=== PATIENT | female | born 1940 | race Caucasian/White ===

== ENCOUNTER → 2018-09-09 11:30 | Outpatient (CLI) | payer MEDICARE, OTHER, SELFPAY ==
[2016-12-24 09:52] VITALS: BMI 34.9
[2018-09-09 14:00] LABS: Amphetamine Urine VISTA NEGATIVE (<1000 ng/mL); Barbiturate Urine VISTA NEGATIVE (< 200 ng/mL); Benzodiazepine Urine VISTA NEGATIVE (< 200 ng/mL); Cocaine Urine VISTA NEGATIVE (< 300 ng/mL); Ecstacy Urine VISTA NEGATIVE (< 500 ng/mL); Methadone Urine VISTA NEGATIVE (< 300 ng/mL); PCP Urine VISTA NEGATIVE (< 25 ng/mL); THC Urine VISTA NEGATIVE (< 50 ng/mL); Vista UDS pH Range 5
== END ==
PROVIDERS: Family Provider Internal Medicine; PCP Internal Medicine; Referring Provider Anesthesiology Pain Medicine; Visit Provider Anesthesiology Pain Medicine
DX: F11.20 Opioid dependence, uncomplicated (principal)
CPT/HCPCS: 80307

== ENCOUNTER → 2019-08-11 10:54 | Outpatient (CLI) | payer MEDICARE, OTHER, SELFPAY ==
[2019-04-29 10:03] VITALS: BMI 41.8
[2019-08-11 11:59] LABS: Amphetamine Urine VISTA NEGATIVE (<1000 ng/mL); Barbiturate Urine VISTA NEGATIVE (< 200 ng/mL); Benzodiazepine Urine VISTA NEGATIVE (< 200 ng/mL); Cocaine Urine VISTA NEGATIVE (< 300 ng/mL); Ecstacy Urine VISTA NEGATIVE (< 500 ng/mL); Methadone Urine VISTA NEGATIVE (< 300 ng/mL); PCP Urine VISTA NEGATIVE (< 25 ng/mL); THC Urine VISTA NEGATIVE (< 50 ng/mL); Vista UDS pH Range 6
== END ==
PROVIDERS: PCP Internal Medicine; Referring Provider Anesthesiology Pain Medicine; Visit Provider Anesthesiology Pain Medicine
DX: F11.20 Opioid dependence, uncomplicated (principal)
CPT/HCPCS: 80307

== ENCOUNTER → 2020-08-17 12:22 | Outpatient (CLI) | payer MEDICARE, OTHER, SELFPAY ==
[2019-04-29 10:03] VITALS: BMI 41.8
--- NOTE | 2020-08-17 12:29 | MRI_ITS ---
STUDY: MRI LEFT ANKLE WITHOUT CONTRAST REASON FOR EXAM: Female, 80 years old. OSTEOARTHRITIS LEFT ANKLE TECHNIQUE: Standardized fat and water weighted pulse sequences were obtained in all 3 orthogonal planes. COMPARISON: Contralateral ankle MRI from the same day. FINDINGS: Moderate tibiotalar joint arthrosis with multiregional bone contusion and small osteochondral lesions. Mild subtalar joint arthrosis. Moderate/severe calcaneocuboid joint arthrosis. Advanced mid foot joint arthrosis with cyst/erosions at the talonavicular, navicular cuneiform and tarsometatarsal joints. No acute fracture line. No acute dislocation. No evidence of acute bone destruction. Os trigonum. Mild/moderate Achilles tendinosis. Large plantar spur. Chronic plantar fascial thickening. Muscle atrophy. Moderate volume midfoot/hindfoot joint effusions predominating at the tibiotalar joint. Extensive soft tissue swelling. No solid, cystic or lipomatous soft tissue lesions. Diffuse soft tissue swelling. Trace extensor digitorum tenosynovitis. Remainder of the extensor tendons unremarkable. Minimal peroneus longus/brevis tenosynovitis with paranasal and split tear (axial image 25 series 4). Mild posterior tibialis and flexor tenosynovitis with fluid at the master knot of [place]. Chronic Lisfranc ligament sprain. Chronic anterior and posterior talofibular ligament sprains. Syndesmotic ligaments intact. Acute on chronic deltoid ligament sprain. Normal spring ligament. Sinus Tarsi/subtalar edema. 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
--- NOTE | 2020-08-17 12:29 | MRI_ITS ---
STUDY: MRI RIGHT ANKLE WITHOUT CONTRAST REASON FOR EXAM: Female, 80 years old. ACHILLES TENDINITIS RIGHT ANKLE TECHNIQUE: Standardized fat and water weighted pulse sequences were obtained in all 3 orthogonal planes. COMPARISON: None. FINDINGS: Moderate tibiotalar joint arthrosis with osteochondral lesions measuring up to 1.4 cm (sagittal image 9). Mild subtalar joint arthrosis. Moderate calcaneocuboid joint arthrosis. Moderate/severe talonavicular joint arthrosis. Severe midfoot joint arthrosis at the navicular cuneiform and tarsometatarsal joints. Large os trigonum. Multiregional reactive bone marrow edema without fracture line, dislocation or acute bone destruction. Moderate/severe Achilles tendinosis with calcification (sagittal image 13 series 8). Plantar fascial thickening. Plantar spur. Normal extensor tendons. Mild posterior tibialis tenosynovitis. Remaining flexor tendons unremarkable. Mild peroneus longus/brevis tenosynovitis without tear. Chronic Lisfranc ligament sprain without tear (long axis image 11 series 10). Anterior and posterior syndesmotic ligament intact. Chronic thickening of the anterior and posterior talofibular ligaments. Acute on chronic deltoid ligament sprain. Normal spring ligament. Sinus Tarsi/subtalar ligamentous edema. Moderate diffuse soft tissue swelling. Small volume ankle joint effusions. No solid, cystic or lipomatous lesions. Varicose veins. MRI/Lower Ext Joint Only (Routine) IMPRESSION: Charcot''s arthropathy with advanced mid foot/hindfoot degenerative change Moderate/severe Achilles tendinosis with calcification Chronic plantar fascial thickening with plantar spur Mild PTT and peroneus longus/brevis tenosynovitis Multiregional acute/chronic ankle sprains without tear Moderate soft tissue swelling with small volume joint effusions Electronically Signed: Toño Mac DO at 8:15 EST Tel , Service support ,
== END ==
PROVIDERS: PCP Internal Medicine; Referring Provider Podiatrist; Visit Provider Podiatrist
DX: M19.072 Primary osteoarthritis, left ankle and foot (principal); M76.61 Achilles tendinitis, right leg
CPT/HCPCS: 73721

== ENCOUNTER 2021-07-10 10:59 | Outpatient (CLI) | payer MEDICARE, OTHER, SELFPAY ==
[2019-04-29 10:03] VITALS: BMI 41.8
[2021-07-10 13:31] LABS: Amphetamine Urine VISTA NEGATIVE (<1000 ng/mL); Barbiturate Urine VISTA NEGATIVE (< 200 ng/mL); Benzodiazepine Urine VISTA NEGATIVE (< 200 ng/mL); Cocaine Urine VISTA NEGATIVE (< 300 ng/mL); Ecstacy Urine VISTA NEGATIVE (< 500 ng/mL); Methadone Urine VISTA NEGATIVE (< 300 ng/mL); PCP Urine VISTA NEGATIVE (< 25 ng/mL); THC Urine VISTA NEGATIVE (< 50 ng/mL); Vista UDS pH Range 6
== END 2021-07-10 23:59 | disposition short-term general hospital (02) ==
LOC: LAB 11:02
PROVIDERS: PCP Internal Medicine; Referring Provider Anesthesiology Pain Medicine; Visit Provider Anesthesiology Pain Medicine
DX: F11.20 Opioid dependence, uncomplicated (principal)
CPT/HCPCS: 80307

== ENCOUNTER 2022-04-22 06:45 | Day surgery (SDC) | payer MEDICARE, OTHER, SELFPAY ==
[2019-04-29 10:03] VITALS: BMI 41.8
[2022-04-18 08:36] VITALS: BMI 38.0
[2022-04-19 07:00] LABS: INR Fingerstick 2.3; Prothrombin Time Fingerstick 27.2 SEC (11.7-14.9)
[2022-04-22 06:56] LABS: INR Fingerstick 1.5; Prothrombin Time Fingerstick 17.9 SEC (11.7-14.9)
--- NOTE | 2022-04-22 07:51 | HP.PCM_ITS ---
History and Physical 82-year-old lady with a history of atrial fibrillation hypertension history of breast carcinoma who recently established with us. She has a history of atrial fibrillation and underwent an EKG last year which demonstrated sinus rhythm with a rate of 68 bpm and occasional premature ventricular complexes.? She has had an episode of dizziness and was evaluated by her primary physician.? Her last echocardiogram was in 2019 which demonstrated an ejection fraction of 50%.? It was decided that a chest echocardiogram should be repeated.? She had also previously had a pharmacologic myocardial perfusion stress test in March 2021 demonstrating no evidence of ischemia.? She was undergoing a preoperative cardiac evaluation by her primary care doctor. Primary care doctor did obtain a stress test. Stress test in April 2022 was found to be abnormal. It was a limited cardiac scan due to bowel artifact. The limitations of the scans demon strated moderate to severe basal inferior wall reversibility defect which could be related to stress-induced ischemia. Because of this she is undergoing a diagnostic heart catheterization. Medications simvastatin 20 mg tablet 20 mg PO QHS 10/27/13 [History Confirmed 02/22/22] carvedilol 6.25 mg tablet (Coreg) 6.25 mg PO BID 12/13/16 [History Confirmed 02/22/22] pregabalin 75 mg capsule 75 mg PO BID 12/13/16 [History Confirmed 02/22/22] calcium citrate 250 mg PO BID 02/20/22 [History Confirmed 02/22/22] ferrous gluconate 324 mg (37.5 mg iron) tablet 324 mg PO DAILY 02/20/22 [History Confirmed 02/22/22] furosemide 20 mg tablet 20 mg PO DAILY 02/20/22 [History Confirmed 02/22/22] losartan 25 mg tablet 25 mg PO DAILY 02/20/22 [History Confirmed 02/22/22] mirabegron 50 mg tablet,extended release 24 hr (Myrbetriq) 50 mg PO DAILY 02/20/22 [History Confirmed 02/22/22] multivitamin 1 tab PO DAILY 02/20/22 [History Confirmed 02/22/22] ropinirole 0.5 mg tablet 0.5 mg PO DAILY 02/20/22 [History Confirmed 02/22/22] warfarin 5 mg tablet (Jantoven) 5 mg PO DAILY 02/20/22 [History Confirmed 02/22/22] hydrocodone 7.5 mg-acetaminophen 325 mg tablet 1 tab PO BID 02/22/22 [History Confirmed 02/22/22] oxybutynin chloride 10 mg tablet,extended release 24 hr (Ditropan XL) 10 mg PO DAILY 02/22/22 [History Confirmed 02/22/22] polyethylene glycol 3350 17 gram oral powder packet 17 g PO DAILY PRN constipation 02/22/22 [History Confirmed 02/22/22] Ejection fraction %: 40 to 44 PFSH Medical History?(Updated 02/22/22 @ 10:08 by Chely Nelson) Abnormal EKG Afib Anemia Arthritis Breast cancer Carpal tunnel syndrome, bilateral Chronic low back pain Class 2 severe obesity due to excess calories with serious comorbidity and body mass index (BMI) of 38.0 to 38.9 in adult DVT (deep venous thrombosis) Dysuria Essential (primary) hypertension History of pulmonary embolism Hyperlipemia Insomnia Lymphedema JUANY (obstructive sleep apnea) Osteoarthritis Stage 3b chronic kidney disease Surgical History?(Updated 02/22/22 @ 10:09 by Chely Nelson) History of bilateral knee replacement History of carpal tunnel surgery History of cataract surgery History of left shoulder replacement (~01/24/17) History of lumpectomy of right breast History of partial mastectomy of right breast Hx of adenoidectomy Hx of appendectomy Hx of tonsillectomy Family History?(Updated 02/20/22 @ 14:09 by Chely Nelson) Father Prostate cancer Hyperlipidemia Heart disease HypertensionBrother Diabetes CVA (cerebral vascular accident) Heart diseaseSister Cervical cancerMother Hyperlipidemia Heart disease Hypertension CancerAunt Heart disease Hypertension Social History?(Updated 02/22/22 @ 10:10 by Chely Nelson) Smoking Status:? Never smoker alcohol intake:? never substance use type:? does not use caffeine:? Yes Type: tea Number of servings: 1 ROS Const Const: Negative for fatigue, weakness, headache(s), frequent falls, difficulty sleeping or excessive sweating Eyes Eyes: Negative for loss of peripheral vision, transient loss of vision, blurry vision, double vision or tunnel vision ENT ENT: Positive for balance problems (uses canes for walking); Negative for headache(s), dizziness or Nosebleed/epistaxis Cardio Chest Pain: No Palpitations: No Edema: Bilateral Muscle aches with walking: None Resp Respiratory: Positive for SOB with activity (walking long distance); Negative for SOB at rest, SOB orthopnea\SOB lying down, Cough or paroxysmal nocturnal dyspnea GI GI: Negative nausea, vomiting, heartburn or black,tarry stools : Negative for hematuria Musc Musc: Positive for joint pain and balance problems (uses canes for walking); Negative for muscle aches/ myalgia or muscle weakness Skin Skin: Negative non-healing lesions, rash or unusual bruising Neuro Neuro: Positive for lightheadedness and near syncope; Negative for dizziness, syncope, frequent falls, headache(s), weakness, blurry vision, double vision or lack of coordination Hal Hematologic/Lymphatic: Negative for easy bleeding or easy bruising Endo Endo: Negative for fatigue, excessive sweating or increased thirst/drinking Psych Psych: Negative for anxiety or depression Allergy Allergy/Immunology: Negative for hives and Negative for rash Cardiology Exam Const Appearance: cooperative, healthy appearing, no acute distress, well developed and well groomed Nutritional Appearance: average body habitus and well nourished Orientation: alert, awake and oriented x3 Head Head: normal to inspection, normocephalic and atraumatic Ears: hearing grossly normal bilaterally and external ears normal Nose: external nose normal, nares normal, nasal mucous membranes and turbinates normal, septum normal and no nasal discharge Face and Sinus: face symmetric Mouth: oral mucosae normal, tongue normal, oropharynx normal and moist mucous membranes Teeth and gingiva: dentition normal Throat: posterior oropharynx normal, tonsils normal and uvula midline Eyes General: appearance normal, both eyes and all related structures Eyelids: eyelids normal Conjunctivae: conjunctivae normal Pupils: PERRL, normal by confrontation and accommodation normal EOM: EOM intact bilaterally Neck Neck: normal visual inspection, trachea midline and no JVD JVD: +5 Carotids: normal carotid upstroke and bounding pulses Chest Chest inspection: normal inspection of the chest, symmetric chest movement and normal respiratory effort Auscultation: Bilateral: Clear to Auscultation Cardio Palpation: normal PMI Rate: regular rate Rhythm: regular rhythm Heart sounds: S1 normal, S2 normal and normal, physiologic split S2; Negative rub, gallop or murmur GI GI: normal to inspection, soft, no hepatosplenomegaly and bowel sounds present Neuro General: patient alert, patient awake, patient oriented x3, gait normal, moves all extremities and no focal sensory deficit Skin Skin: no rashes or lesions noted Extremities Pulses: Normal: Right Femoral Pulse, Left Femoral Pulse, Right Dorsalis Pedis Pulse, Left Dorsalis Pedis Pulse, Right Posterior Tibial Pulse, Left Posterior Tibial Pulse, Right Radial Pulse and Left Radial Pulse Lower Extremity Edema: None: Bilateral Musculoskel Musculoskeletal: No joint tenderness Psych Psychological: normal affect Assessment & Plan Assessment/Plan (1) Encounter for pre-operative cardiovascular clearance: (2) Abnormal cardiovascular stress test: (3) Essential (primary) hypertension: (4) Paroxysmal atrial fibrillation: PLAN: Plan Patient is undergoing a diagnostic heart catheterization today. Follow-up recommendations will based upon results.
--- NOTE | 2022-04-22 09:47 | CL.D_ITS ---
Patient Name: NITA PONCE Study Date: 04/22/2022 Performing: Carlos Vaughan MD Ht: 67 inches 170.18 cm : 1940 Wt: 242.99 lbs 110.22 kg Age: 82 Gender: female BSA: 2.2 PROCEDURE(S) PERFORMED DC01-([id number])LHC/COR/LV CLINICAL PROFILE AND INDICATIONS Indications: Suspected CAD Heart Failure: None Stress/Imaging Date: 04/09/22Stress Test with SPECT MPI: Indeterminant CAD Presentations: No Sxs, no angina. CONCLUSIONS No significant obstructive coronary disease RECOMMENDATIONS Medical therapy DESCRIPTION OF PROCEDURE The patient arrived to the procedure lab. The risks and benefits of the procedure as well as a full description of our services here and current unavailability of surgical backup were fully explained to the patient and/or their significant other prior to the catheterization. The Timeout was completed, verifying the correct patient and procedure. The patient's procedural site was prepped and draped in the usual fashion. Local anesthetic was given subcutaneously to right radial region with Lidocaine 2%. Using a modified Seldinger technique, arterial access was obtained via the right radial artery, a 6Fr sheath was inserted. Right Coronary Artery selective angiography was then performed in multiple views using a 5 Fr. 4.0 [place] catheter. Left Coronary Artery selective angiography was performed in multiple views using a 5 Fr. 4.0 [place] catheter. Left Ventriculography was performed in VIRGEN projection using a 5 Fr. Pig[place] catheter. LV to AO pullback pressures were then recorded.The arterial sheath was pulled and a TR Band was applied for hemostasis CORONARY ANGIOGRAPHY DOMINANCE: Right Dominant LEFT HEART ASSESSMENT Left Ventricular Ejection Fraction: by LV Gram 60 % Normal LV wall motion Normal Left Ventricular systolic function LEFT MAIN: No significant disease noted LEFT ANTERIOR DESCENDING ARTERY: Mild luminal irregularities CIRCUMFLEX ARTERY: No significant disease noted RIGHT CORONARY ARTERY: No significant disease noted COMPLICATIONS No Complications PROCEDURE MEDICATIONS Fentanyl 50 mcg IV Versed 1 mg IV Versed 1 mg IV Oxygen: 2 L/min via nasal cannula SUMMARY OF HEMODYNAMIC DATA Time AIR REST ECG 07:20:44 AO 119/67 (90) SA 09:29:53 LV 140/14, 23 09:35:39 LV 146/16, 27 09:35:46 LV 145/14, 25 09:36:30 LVp 147/13, 09:36:36 AOp 154/73 (109) 09:36:41 Signed By Carlos Vaughan MD On 04/22/2022 09:47:23 Carlos Vaughan MD
== END 2022-04-22 11:25 | disposition home or self-care (01) ==
PROVIDERS: PCP Internal Medicine; Referring Provider Internal Medicine Cardiovascular Disease; Visit Provider Internal Medicine Cardiovascular Disease
DX: I25.10 Atherosclerotic heart disease of native coronary artery without angina pectoris (principal); I48.0 Paroxysmal atrial fibrillation; N18.32 Chronic kidney disease, stage 3b; I12.9 Hypertensive chronic kidney disease with stage 1 through stage 4 chronic kidney disease, or unspecified chronic kidney disease; E78.5 Hyperlipidemia, unspecified; G47.33 Obstructive sleep apnea (adult) (pediatric); D64.9 Anemia, unspecified; Z86.718 Personal history of other venous thrombosis and embolism; Z79.82 Long term (current) use of aspirin; Z79.899 Other long term (current) drug therapy; Z79.01 Long term (current) use of anticoagulants
CPT/HCPCS: 36416; 85610; 93458; 99152; 99153; J7040; C1769; C1894; Q9967

== ENCOUNTER → 2022-10-30 | Outpatient (CLI) | payer MEDICARE, OTHER, SELFPAY ==
[2019-04-29 10:03] VITALS: BMI 41.8
[2022-10-30 12:52] LABS: Anion Gap 5 (5-15); BUN 21 mg/dL (7-18); BUN/Creat Ratio 21.9 RATIO (10-20); Calcium,Total 9.4 mg/dL (8.5-10.1); Chloride 105 mmol/L (98-107); Creatinine, Serum 0.96 mg/dL (0.55-1.02); EST Glomerular Filtration Rate 60 mL/min (>60); Est Glom Filt Rate - Afr Amer 72 mL/min (>60); Glucose 114 mg/dL (74-106); Potassium 3.7 mmol/L (3.5-5.1); Sodium Level 141 mmol/L (136-145)
== END | disposition home or self-care (01) ==
LOC: LAB 11:31
PROVIDERS: PCP Internal Medicine; Referring Provider Internal Medicine Cardiovascular Disease; Visit Provider Internal Medicine Cardiovascular Disease
DX: R60.9 Edema, unspecified (principal); N18.32 Chronic kidney disease, stage 3b
CPT/HCPCS: 36415; 80048

== ENCOUNTER 2023-04-02 13:15 | Outpatient (RCR) | payer MEDICARE, OTHER, SELFPAY ==
[2019-04-29 10:03] VITALS: BMI 41.8
[2023-03-19 13:00] VITALS: BP 139/77; PULSE 66; RESP 16; TEMP 36.3; BMI 34.6
--- NOTE | 2023-03-19 16:51 | PCM.WC.HP ---
History of Present Illness Date of Service: 03/19/23 Chief Complaint: Left anterior leg wound History of Wound: Patient is a 83-year-old known to the wound care center at [facility] for treatment and evaluation of her chronic left anterior leg wound. Patient has been getting treatment by her primary care physician with regular debridements and antibiotic treatment. Patient did have a culture by her primary care that grew out Pseudomonas aeruginosa she was treating with topical antibiotics and again oral antibiotics, 2 rounds with failure to heal. She presents today to the wound care center for treatment. She denies any trauma. Denies constitutional symptoms. No other pedal complaints at this time. Progress of Wound: Chronic ulceration left anterior leg. [facility] Medical History Anemia Arthritis Breast cancer Carpal tunnel syndrome, bilateral Chronic low back pain Class 2 severe obesity due to excess calories with serious comorbidity and body mass index (BMI) of 38.0 to 38.9 in adult DVT (deep venous thrombosis) Dysuria Essential (primary) hypertension History of pulmonary embolism Hyperlipemia Insomnia Lymphedema Non-ischemic cardiomyopathy JUANY (obstructive sleep apnea) Osteoarthritis Paroxysmal atrial fibrillation Stage 3b chronic kidney disease Home Medications simvastatin 20 mg tablet 20 mg PO QHS 10/27/13 [History Last Taken Unknown] pregabalin 75 mg capsule 75 mg PO BID 12/13/16 [History Last Taken Unknown] mirabegron 50 mg tablet,extended release 24 hr (Myrbetriq) 50 mg PO DAILY 02/20/22 [History Last Taken Unknown] multivitamin 1 tab PO DAILY 02/20/22 [History Last Taken Unknown] ropinirole 0.5 mg tablet 0.5 mg PO DAILY 02/20/22 [History Last Taken Unknown] warfarin 5 mg tablet (Jantoven) 5 mg PO DAILY 02/20/22 [History Last Taken Unknown] hydrocodone 7.5 mg-acetaminophen 325 mg tablet 1 tab PO BID 02/22/22 [History Last Taken Unknown] oxybutynin chloride 10 mg tablet,extended release 24 hr (Ditropan XL) 10 mg PO DAILY 02/22/22 [History Last Taken Unknown] carvedilol 12.5 mg tablet 12.5 mg PO BID #180 tabs 02/28/22 [Rx Last Taken 04/22/22] calcium citrate 315 mg-vitamin D3 5 mcg (200 unit) tablet (Calcium Citrate + D) 1 tab PO BID 03/19/23 [History Last Taken Unknown] cranberry fruit concentrate 250 mg chewable tablet (Azo Cranberry) 500 mg PO DAILY 03/19/23 [History Last Taken Unknown] melatonin 10 mg capsule 10 mg PO QHS 03/19/23 [History Last Taken Unknown] vit C 250 mg-vit E 200 unit-zinc ox 12.5 as-ehnmtd-wxlsde-zeax capsule (ICaps AREDS2) cap PO DAILY 03/19/23 [History Last Taken Unknown] Allergy/AdvReac Type Severity Reaction Status Date / Time adhesive tape AdvReac Intermediate Other Verified 03/19/23 13:17 lisinopril AdvReac Mild cough Verified 03/19/23 13:17 Family History Father Prostate cancer Hyperlipidemia Heart disease Hypertension Brother Diabetes CVA (cerebral vascular accident) Heart disease Sister Cervical cancer Mother Hyperlipidemia Heart disease Hypertension Cancer Aunt Heart disease Hypertension Surgical History History of bilateral knee replacement History of carpal tunnel surgery History of cataract surgery History of left heart catheterization (04/22/22) History of left shoulder replacement (01/24/17) History of lumpectomy of right breast History of partial mastectomy of right breast Hx of adenoidectomy Hx of appendectomy Hx of tonsillectomy Social History Smoking Status: Never smoker alcohol intake: never substance use type: does not use caffeine: Yes Type: tea Number of servings: 1 Vital Signs Vital Signs Vital Signs: 03/19/23 13:00 Temperature 97.4 F L Temperature Source Temporal Pulse Rate 66 Respiratory Rate 16 Blood Pressure 139/77 H Blood Pressure Mean 97 Blood Pressure Source Monitor Blood Pressure Position Sitting Blood Pressure Location Left Arm Oxygen Delivery Method Room Air Weight Weight: 100.244 kg Body Mass Index (BMI) 34.6 Physical Exam Narrative Vascular: DP and PT pulse are faintly palpable secondary to edema. CFT is brisk. Skin temperature great is warm to warm from proximal ankle to distal digit. Neurological: Light touch and epicritic station is intact. Dermatological: Full-thickness ulceration to the left anterior leg measuring 2.0 x 1.5 x 0.2 cm. Wound base is granular nature. No sign of infection. No evidence of drainage. No probe to bone. No erythema or proximal streaking. Excisional debridement down to and including subcutaneous tissue with a number 5 mm dermal curette to left anterior leg full-thickness ulceration. Predebridement measurement is 1.8 x 1.4 x 0.1 cm. Postdebridement measurements are 2.0 x 1.5 x 0.2 cm. Musculoskeletal: Mild pain on palpation to the full-thickness ulceration to the left leg. No pain with calf compression. Debridement Note Debridement Note Debridement Free Text: Excisional debridement down to and including subcutaneous tissue with a number 5 mm dermal curette to left anterior leg full-thickness ulceration. Predebridement measurement is 1.8 x 1.4 x 0.1 cm. Postdebridement measurements are 2.0 x 1.5 x 0.2 cm. Post-Debridement Measurements and Additional Note: Post-Debridement Measurements/Treatment - Nurse 1 - General Ulcer Assessment Start: 03/19/23 12:59 Freq: Status: Active Protocol: WC.LOWEXT Activity Type Activity Date Activity User E-sign Co-sign Detail Recorded Client Recorded Date Recorded By Document 03/19/23 13:00 [facility] Desktop 03/19/23 13:10 [facility] 03/19/23 13:00 - Today's Visit Information Type of service Initial Visit Arrival Mode Ambulatory,Cane Transfer Assistance None Patient Identification Verified (Name & Yes ) Patient Requires Transmission-Based No Precautions Height and Weight Height 5 ft 7 in Weight 100.244 kg Weight in Pounds 221.0 lbs Weight Measurement Method Stated by Patient Body Mass Index (BMI) 34.6 BMI Classification Obese BSA - Windy 2.11 Vital Signs Temperature (97.8 F-99.1 F) 97.4 F L Temperature Source Temporal Pulse Rate (60-100) 66 Pulse Location Monitor Respiratory Rate (12-18) 16 Respiratory rate source Observation Oxygen Delivery Method Room Air Blood Pressure (90/60-120/80) 139/77 H Blood Pressure Mean 97 Source Monitor Position Sitting Blood Pressure Location Left Arm History Since Last Visit- (Skip if this is Patient's initial visit) Left Footwear Regular Shoe Right Footwear Regular Shoe Pain Scale: 0-10 Numeric Is Patient Pain Free? Yes Lower Extremity Assessment/ Foot Assessment/ Toe Nail Assessment Right -Posterior Tibial Doppler Monophasic -Dorsalis Pedis Doppler Multiphasic -Extremity Color Hyperpigmented, Hemosiderin -Hair Growth on Legs No -Hair Growth on Toes No -Other Deformity No: TOENAILS PAINTED -Prior Foot Ulcer No -Charcot Joint No -Prior Amputation No -Improper Length & Hygeine No Left -Posterior Tibial Doppler Monophasic -Dorsalis Pedis Doppler Multiphasic -Extremity Color Hyperpigmented, Hemosiderin -Hair Growth on Legs No -Hair Growth on Toes No -Other Deformity No: TOENAILS PAINTED -Prior Foot Ulcer No -Charcot Joint No -Prior Amputation No -Improper Length & Hygeine No Communication Assessment Preferred language [place] [employer] Equipment Operator Required No Able to Read Yes Able to Write Yes Communication Tools None Right Hearing Abillity Normal Left Hearing Abillity Normal Visual Assistive Devices Glasses Teaching Assessment Preferences Verbal,Written, Audio/Visual, Demonstration Barriers to Learning None Readiness To Learn Excellent Willingness to Engage in Self Management High Activies Readiness to Engage in Self Management High Activities Anxiety Level Calm Cooperation Cooperative Perception Coherent Interest in Health Problem Asks Questions Education Importance Acknowledges Need Does Patient Smoke tobacco or other No substances Smoking Status Never smoker Is Patient Diabetic No Functional Assessment Recent Decline in Ability to Perform Denies Any Declines Culture/Druze/Vamp Wetter Cultural/Druze Needs that may affect No Treatment Plan Teaching: Wound Center *Welcome to the Wound Center -Person Taught Patient -Teaching Method Discussion -Response to teaching Verbalize understanding Welcome to the Wound Care Center English ROJAS - Nurse 1 - General Ulcer Measurement Start: 03/19/23 12:59 Freq: Status: Active Protocol: Activity Type Activity Date Activity User E-sign Co-sign Detail Recorded Client Recorded Date Recorded By Document 03/19/23 13:00 [facility] Desktop 03/19/23 13:10 [facility] 03/19/23 13:00 Wound Center Nurse 1 #1- L TENA -Combined with other wound No -Current Size (cm) - Length 1.5 -Current Size (cm) - Width 2.1 -Current Size (cm) - Depth 0.1 -Total Square Cm 3.15 -Date of Last Picture (Recall this 03/19/23 field) -Photo Taken Yes -Tunneling No -Undermining/Tunneling No -Circular Undermining No -Exudate Amt Medium -Exudate Type Serosanguineous -Wound Margin Flat & Intact -Granulation Amt Small (1-33%) -Granulation Quality Red -Slough/Fibrin Yes -Necrosis Amt Large (67-100%) -Necrotic Tissue Type Adherent Slough -Texture (Linda-wound Skin Appearance) Assessed -Moisture (Linda-wound Skin Appearance) Assessed -Color (Linda-wound Skin Appearance) Assessed -Temperature (Linda-wound Skin No Abnormality Appearance) (Pt Warm) -Tenderness on Palpation (Linda-wound No Skin Appearance) -Ulcer Cleansing Rinsed/ Irrigated with Saline -Foul Odor after Cleansing No -Anesthetic Used 5% Lidocaine Gel Lower Limb Edema Present Yes Left Calf (cm) 49 Left Ankle (cm) 31 WC - Nurse 2 - General Ulcer CM Notes Start: 03/19/23 12:59 Freq: Status: Active Protocol: Activity Type Activity Date Activity User E-sign Co-sign Detail Recorded Client Recorded Date Recorded By Document 03/19/23 13:26 Laptop 03/19/23 13:29 03/19/23 13:26 Wound Center Nurse 2 #1- L TENA -Time 13:27 -Correct Patient Yes -Correct Side, Site, Position Yes -Correct Procedure Yes -Procedure Performed Yes -Type of Procedure Debridement -Clinical Debridement Subcutaneous -Tissue Removed Subcutaneous -Post Debridement (cm) - Length 2.0 -Post Debridement (cm) - Width 1.5 -Post Debridement (cm) - Depth 0.2 -Total Square (Post) (cm) 3.00 -Area of Debridement (cm) - Length 2.0 -Area of Debridement (cm) - Width 1.5 -Total Square (Area) (cm) 3.00 -Tunneling No -Undermining/Tunneling No -Circular Undermining No -Wound/Ulcer Outcome Not Healed -Ulcer Cleansing Rinsed/ Irrigated with Saline -Foul Odor after Cleansing No -Bioengineered Tissue No -Bleeding Controlled with Pressure -Treatment Response Procedure Tolerated Well -Offloading No -Debridement - Subq, 1st 20sq cm Yes Pain Scale: 0-10 Numeric Is Patient Pain Free? Yes CRYSTAL - Nurse 3 - General Ulcer D/C NN Start: 03/19/23 12:59 Freq: Status: Active Protocol: Activity Type Activity Date Activity User E-sign Co-sign Detail Recorded Client Recorded Date Recorded By Document 03/19/23 13:43 [facility] Desktop 03/19/23 13:43 [facility] 03/19/23 13:43 Wound Care Center Nurse 3 #1- L TENA -Ulcer Cleansing Soap and Water -Foul Odor after Cleansing No -Primary Dressing Applied NonAdherent Contact Layer -Other Dressing XEROFORM; PER GM RN -Other Covering ABD BLE -Multi-Layered Wrap Application Multi-Layer Comp - Bilat ($ ) Treatment Response Procedure Tolerated Well Pain Scale: 0-10 Numeric Is Patient Pain Free? Yes WC - Visit Discharge Discharge Condition Stable Ambulatory Status Ambulatory,Cane Transportation Private Auto Assessment/Plan Assessment/Plan (1) Ulcer of left lower extremity with fat layer exposed: CODE(S): L97.922 - Non-pressure chronic ulcer of unspecified part of left lower leg with fat layer exposed PLAN: Patient was examined evaluated. All findings were discussed with the patient. All questions were answered to the patient's satisfaction. Excisional debridement down to and including subcutaneous tissue with a number 5 mm dermal curette to left anterior leg full-thickness ulceration. Predebridement measurement is 1.8 x 1.4 x 0.1 cm. Postdebridement measurements are 2.0 x 1.5 x 0.2 cm. Wound was dressed with Ora, Betadine paint and dry sterile dressing with Tubigrip. Patient to keep dressing clean dry and intact. Follow-up in 1 week. (2) Edema: CODE(S): R60.9 - Edema, unspecified QUALIFIERS: Edema type: generalized Qualified Code(s): R60.1 - Generalized edema (3) Pain in left leg: CODE(S): M79.605 - Pain in left leg
[2023-03-26 13:13] VITALS: BP 126/61; PULSE 78; RESP 16; TEMP 36.3; BMI 34.6
--- NOTE | 2023-03-26 15:20 | PCM.WC.PN ---
History of Present Illness Date of Service: 03/26/23 Chief Complaint: Left anterior leg wound History of Wound: Patient is a 83-year-old known to the wound care center at [facility] for treatment and evaluation of her chronic left anterior leg wound. Patient has been getting treatment by her primary care physician with regular debridements and antibiotic treatment. Patient did have a culture by her primary care that grew out Pseudomonas aeruginosa she was treating with topical antibiotics and again oral antibiotics, 2 rounds with failure to heal. She presents today to the wound care center for treatment. She denies any trauma. Denies constitutional symptoms. No other pedal complaints at this time. Progress of Wound: Chronic ulceration left anterior leg. Subjective Subjective Patient is a 83-year-old known to the wound care center at [facility] for treatment and evaluation of her chronic left anterior leg wound. Patient has been getting treatment by her primary care physician with regular debridements and antibiotic treatment. Patient did have a culture by her primary care that grew out Pseudomonas aeruginosa she was treating with topical antibiotics and again oral antibiotics, 2 rounds with failure to heal. She presents today to the wound care center for treatment. She denies any trauma. Denies constitutional symptoms. No other pedal complaints at this time. Objective Data Objective Data Vital Signs: Vital Signs Temp Pulse Resp BP O2 Del Method 97.4 F L 78 16 126/61 H Room Air 03/26/23 13:13 03/26/23 13:13 03/26/23 13:13 03/26/23 13:13 03/26/23 13:13 Oxygen Delivery Method Room Air Weight: 100.244 kg Body Mass Index (BMI) 34.6 Physical Exam Narrative Vascular: DP and PT pulse are faintly palpable secondary to edema. CFT is brisk. Skin temperature great is warm to warm from proximal ankle to distal digit. Neurological: Light touch and epicritic station is intact. Dermatological: Full-thickness ulceration to the left anterior leg measuring 1.4 x 1.5 x 0.1 cm. Wound base is granular nature. No sign of infection. No evidence of drainage. No probe to bone. No erythema or proximal streaking. Excisional debridement down to and including subcutaneous tissue with a number 5 mm dermal curette to left anterior leg full-thickness ulceration. Predebridement measurement is 1.3 x 1.4 x 0.1 cm. Postdebridement measurements are 1.4 x 1.5 x 0.1 cm. EpiFix 18 mm disc was applied to the left leg full-thickness ulceration with 100% use. First application. The graft site was free and clear of any infection. The wound/skin graft substitute was dressed with nonadherent bandage secured in place with Steri-Strips followed by bolster dressing as well as a double layer Tubigrip. Musculoskeletal: Mild pain on palpation to the full-thickness ulceration to the left leg. No pain with calf compression. 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 ) Arrival Mode Ambulatory,Cane Ambulatory,Cane Transfer Assistance None None Patient Identification Verified (Name & Yes Yes ) Patient Requires Transmission-Based No No Precautions Height and Weight Height 5 ft 7 in Weight 100.244 kg Weight in Pounds 221.0 lbs Weight Measurement Method Stated by Patient Body Mass Index (BMI) 34.6 34.6 BMI Classification Obese Obese BSA - Windy 2.11 Vital Signs Temperature (97.8 F-99.1 F) 97.4 F L 97.4 F L Temperature Source Temporal Temporal Pulse Rate (60-100) 66 78 Pulse Location Monitor Monitor Respiratory Rate (12-18) 16 16 Respiratory rate source Observation Observation Oxygen Delivery Method Room Air Room Air Blood Pressure (90/60-120/80) 139/77 H 126/61 H Blood Pressure Mean (mm Hg) 97 82 Source Monitor Monitor Position Sitting Sitting Blood Pressure Location Left Arm Left Arm History Since Last Visit- (Skip if this is Patient's initial visit) Have you changed medications since your No last visit? Any new allergies or adverse reactions No Had a fall/change in ADL's that may No increase risk of falls Signs or symptoms of abuse and/or No neglect since last visit Have you been in the hospital since your No last visit? Has dressing in place as prescribed Yes Has compression in place as prescribed Yes Has offloadiing in place as prescribed N/A Experienced any changes in pain level or No management Left Footwear Regular Shoe Regular Shoe Right Footwear Regular Shoe Regular Shoe Pain Scale: 0-10 Numeric Is Patient Pain Free? Yes Yes Lower Extremity Assessment/ Foot Assessment/ Toe Nail Assessment Right -Posterior Tibial Doppler Monophasic -Dorsalis Pedis Doppler Multiphasic -Extremity Color Hyperpigmented, Hemosiderin -Hair Growth on Legs No -Hair Growth on Toes No -Other Deformity No: TOENAILS PAINTED -Prior Foot Ulcer No -Charcot Joint No -Prior Amputation No -Improper Length & Hygeine No Left -Posterior Tibial Doppler Monophasic -Dorsalis Pedis Doppler Multiphasic -Extremity Color Hyperpigmented, Hemosiderin -Hair Growth on Legs No -Hair Growth on Toes No -Other Deformity No: TOENAILS PAINTED -Prior Foot Ulcer No -Charcot Joint No -Prior Amputation No -Improper Length & Hygeine No Communication Assessment Preferred language Sinhala Target 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 No Able to Read Yes Able to Write Yes Communication Tools None Right Hearing Abillity Normal Left Hearing Abillity Normal Visual Assistive Devices Glasses Teaching Assessment Preferences Verbal,Written, Audio/Visual, Demonstration Barriers to Learning None Readiness To Learn Excellent Willingness to Engage in Self Management High Activies Readiness to Engage in Self Management High Activities Anxiety Level Calm Cooperation Cooperative Perception Coherent Interest in Health Problem Asks Questions Education Importance Acknowledges Need Does Patient Smoke tobacco or other No substances Smoking Status Never smoker Is Patient Diabetic No Functional Assessment Recent Decline in Ability to Perform Denies Any Declines 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/[employer]ist Needs that may affect No Treatment Plan Teaching: Wound Center *Welcome to the Wound Center -Person Taught Patient -Teaching Method Discussion -Response to teaching Verbalize understanding Welcome to the Wound Care Center English ROJAS - Nurse 1 - General Ulcer Measurement Start: 03/19/23 12:59 Freq: Status: Active Protocol: Activity Type Activity Date Activity User E-sign Co-sign Detail Recorded Client Recorded Date Recorded By Document 03/19/23 13:00 [employer] Desktop 03/19/23 13:10 BM Document 03/26/23 13:13 [facility] Desktop 03/26/23 13:20 [facility] 03/19/23 03/26/23 13:00 13:13 Wound Center Nurse 1 #1- L TENA -Combined with other wound No No -Current Size (cm) - Length 1.5 1.4 -Current Size (cm) - Width 2.1 1.6 -Current Size (cm) - Depth 0.1 0.1 -Total Square Cm 3.15 2.24 -Date of Last Picture (Recall this 03/19/23 03/26/23 field) -Photo Taken Yes Yes -Epithelialization None Present -Tunneling No No -Undermining/Tunneling No No -Circular Undermining No No -Exudate Amt Medium Medium -Exudate Type Serosanguineous Serosanguineous -Wound Margin Flat & Intact Distinct, Outline Attached -Granulation Amt Small (1-33%) Small (1-33%) -Granulation Quality Red Red -Slough/Fibrin Yes Yes -Necrosis Amt Large (67-100%) Large (67-100%) -Necrotic Tissue Type Adherent Slough Adherent Slough -Texture (Linda-wound Skin Appearance) Assessed Assessed, Scarring -Moisture (Linda-wound Skin Appearance) Assessed Assessed,Dry/ Scaly -Color (Linda-wound Skin Appearance) Assessed Assessed, Hemosiderin Staining -Temperature (Linda-wound Skin No Abnormality No Abnormality Appearance) (Pt Warm) (Pt Warm) -Tenderness on Palpation (Linda-wound No No Skin Appearance) -Ulcer Cleansing Rinsed/ Soap and Water Irrigated with Saline -Foul Odor after Cleansing No No -Anesthetic Used 5% Lidocaine 5% Lidocaine Gel Gel Lower Limb Edema Present Yes Yes Right Calf (cm) 46.5 Right Ankle (cm) 30.5 Left Calf (cm) 49 46 Left Ankle (cm) 31 30 WC - Nurse 2 - General Ulcer CM Notes Start: 03/19/23 12:59 Freq: Status: Active Protocol: Activity Type Activity Date Activity User E-sign Co-sign Detail Recorded Client Recorded Date Recorded By Document 03/19/23 13:26 JF Laptop 03/19/23 13:29 Document 03/26/23 13:32 Laptop 03/26/23 13:39 03/19/23 03/26/23 13:26 13:32 Wound Center Nurse 2 #1- L TENA -Time 13:27 13:33 -Correct Patient Yes Yes -Correct Side, Site, Position Yes Yes -Correct Procedure Yes Yes -Procedure Performed Yes Yes -Type of Procedure Debridement Debridement -Clinical Debridement Subcutaneous Subcutaneous -Tissue Removed Subcutaneous Subcutaneous -Post Debridement (cm) - Length 2.0 1.4 -Post Debridement (cm) - Width 1.5 1.5 -Post Debridement (cm) - Depth 0.2 0.1 -Total Square (Post) (cm) 3.00 2.10 -Area of Debridement (cm) - Length 2.0 1.4 -Area of Debridement (cm) - Width 1.5 1.5 -Total Square (Area) (cm) 3.00 2.10 -Tunneling No No -Undermining/Tunneling No No -Circular Undermining No No -Wound/Ulcer Outcome Not Healed Not Healed -Ulcer Cleansing Rinsed/ Rinsed/ Irrigated with Irrigated with Saline Saline -Foul Odor after Cleansing No No -Bioengineered Tissue No Yes -Type of Bioengineered Tissue Epifix 18mm Disc -Expiration Date 12/08/27 -Product Lot Number [id number] -Percent Used 100 -Lot number of Saline Used [id number] -Bleeding Controlled with Pressure Pressure -Treatment Response Procedure Procedure Tolerated Well Tolerated Well -Offloading No No -Debridement - Subq, 1st 20sq cm Yes No -Apply Skin Sub - 1st 25 sq cm - Legs 1 -Epifix 18mm Disc 3 Pain Scale: 0-10 Numeric Is Patient Pain Free? Yes Yes WC - Nurse 3 - General Ulcer D/C NN Start: 03/19/23 12:59 Freq: Status: Active Protocol: Activity Type Activity Date Activity User E-sign Co-sign Detail Recorded Client Recorded Date Recorded By Document 03/19/23 13:43 [facility] Desktop 03/19/23 13:43 [facility] Document 03/26/23 13:44 [facility] Desktop 03/26/23 13:45 F 03/19/23 03/26/23 13:43 13:44 Wound Care Center Nurse 3 #1- L TENA -Ulcer Cleansing Soap and Water -Foul Odor after Cleansing No -Primary Dressing Applied NonAdherent Contact Layer -Other Dressing XEROFORM; PER epifix, abd, GM RN per gm rn -Other Covering ABD BLE -Lotion applied to leg before Yes compression wrap -Multi-Layered Wrap Application Multi-Layer Multi-Layer Comp - Bilat ($ Comp - Bilat ($ ) ) Treatment Response Procedure Procedure Tolerated Well Tolerated Well Pain Scale: 0-10 Numeric Is Patient Pain Free? Yes Yes WC - Visit Discharge Discharge Condition Stable Stable Ambulatory Status Ambulatory,Cane Ambulatory,Cane Transportation Private Auto Private Auto Assessment/Plan Assessment/Plan (1) Ulcer of left lower extremity with fat layer exposed: CODE(S): L97.922 - Non-pressure chronic ulcer of unspecified part of left lower leg with fat layer exposed PLAN: Patient was examined evaluated. All fines were discussed with the patient. All questions were answered to the patient satisfaction. Excisional debridement down to and including subcutaneous tissue with a number 5 mm dermal curette to left anterior leg full-thickness ulceration. Predebridement measurement is 1.3 x 1.4 x 0.1 cm. Postdebridement measurements are 1.4 x 1.5 x 0.1 cm. EpiFix 18 mm disc was applied to the left leg full-thickness ulceration with 100% use. First application. The graft site was free and clear of any infection. The wound/skin graft substitute was dressed with nonadherent bandage secured in place with Steri-Strips followed by bolster dressing as well as a double layer Tubigrip. Follow-up 1 week for graft application. (2) Edema: CODE(S): R60.9 - Edema, unspecified QUALIFIERS: Edema type: generalized Qualified Code(s): R60.1 - Generalized edema (3) Pain in left leg: CODE(S): M79.605 - Pain in left leg
[2023-04-02 13:14] VITALS: BP 165/84; PULSE 67; RESP 16; TEMP 36.6; BMI 34.6
--- NOTE | 2023-04-02 13:50 | PCM.WC.PN ---
History of Present Illness Date of Service: 04/02/23 Chief Complaint: Left anterior leg wound History of Wound: Patient is a 83-year-old known to the wound care center at [facility] for treatment and evaluation of her chronic left anterior leg wound. Patient has been getting treatment by her primary care physician with regular debridements and antibiotic treatment. Patient did have a culture by her primary care that grew out Pseudomonas aeruginosa she was treating with topical antibiotics and again oral antibiotics, 2 rounds with failure to heal. She presents today to the wound care center for treatment. She denies any trauma. Denies constitutional symptoms. No other pedal complaints at this time. Progress of Wound: Chronic ulceration left anterior leg. Subjective Subjective Mrs. Santos is a 83-year-old female presenting to wound care [facility] wound care clinic today for follow-up and evaluation of full-thickness ulceration to the left wade. Patient has had her first application of EpiFix. She has left her bilateral 3M wrappings clean dry and intact. She denies any strikethrough. She does admit that the wraps rolled down a little bit. She is requesting if she can remove the wraps prior to her next visit so that she may shower. She denies trauma. Denies constitutional symptoms. No other pedal complaints at this time. Objective Data Objective Data Vital Signs: Vital Signs Temp Pulse Resp BP O2 Del Method 97.8 F 67 16 165/84 H Room Air 04/02/23 13:14 04/02/23 13:14 04/02/23 13:14 04/02/23 13:14 04/02/23 13:14 Oxygen Delivery Method Room Air Weight: 100.244 kg Body Mass Index (BMI) 34.6 Physical Exam Narrative Vascular: DP and PT pulse are faintly palpable secondary to edema. CFT is brisk. Skin temperature great is warm to warm from proximal ankle to distal digit. Neurological: Light touch and epicritic station is intact. Dermatological: Full-thickness ulceration to the left anterior leg measuring 0.5 x 0.8 x 0.1 cm. Wound base is granular nature. No sign of infection. No evidence of drainage. No probe to bone. No erythema or proximal streaking. Excisional debridement down to and including subcutaneous tissue with a number 5 mm dermal curette to left anterior leg full-thickness ulceration. Predebridement measurement is sanguinous crust. Postdebridement measurements are 0.5 x 0.8 x 0.1 cm. EpiFix 18 mm disc was applied to the left leg full-thickness ulceration with 100% use. Second application. The graft site was free and clear of any infection. The wound/skin graft substitute was dressed with nonadherent bandage secured in place with Steri-Strips followed by bolster dressing as well as a double layer Tubigrip. Musculoskeletal: Mild pain on palpation to the full-thickness ulceration to the left leg. No pain with calf compression. Debridement Note Debridement Note Debridement Free Text: Excisional debridement down to and including subcutaneous tissue with a number 5 mm dermal curette to left anterior leg full-thickness ulceration. Predebridement measurement is sanguinous crust. Postdebridement measurements are 0.5 x 0.8 x 0.1 cm. EpiFix 18 mm disc was applied to the left leg full-thickness ulceration with 100% use. Second application. The graft site was free and clear of any infection. The wound/skin graft substitute was dressed with nonadherent bandage secured in place with Steri-Strips followed by bolster dressing as well as a double layer Tubigrip. Post-Debridement Measurements and Additional Note: Post-Debridement Measurements/Treatment - Nurse 1 - General Ulcer Assessment Start: 03/19/23 12:59 Freq: Status: Active Protocol: [place] Activity Type Activity Date Activity User E-sign Co-sign Detail Recorded Client Recorded Date Recorded By Document 03/19/23 13:00 [facility] Desktop 03/19/23 13:10 [facility] Document 03/26/23 13:13 [facility] Desktop 03/26/23 13:20 [facility] Document 04/02/23 13:14 [facility] Desktop 04/02/23 13:23 [facility] 03/19/23 03/26/23 04/02/23 13:00 13:13 13:14 - Today's Visit Information Type of service Initial Visit Follow-up Visit Follow-up Visit (Physician/PIN GAME 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 (Physician/PIN GAME MACHINE INSPECTOR ) ) Arrival Mode Ambulatory,Cane Ambulatory,Cane Ambulatory,Cane Transfer Assistance None None None Patient Identification Verified (Name & Yes Yes Yes ) Patient Requires Transmission-Based No No No Precautions Height and Weight Height 5 ft 7 in Weight 100.244 kg Weight in Pounds 221.0 lbs Weight Measurement Method Stated by Patient Body Mass Index (BMI) 34.6 34.6 34.6 BMI Classification Obese Obese Obese BSA - Windy 2.11 Vital Signs Temperature (97.8 F-99.1 F) 97.4 F L 97.4 F L 97.8 F Temperature Source Temporal Temporal Temporal Pulse Rate (60-100) 66 78 67 Pulse Location Monitor Monitor Monitor Respiratory Rate (12-18) 16 16 16 Respiratory rate source Observation Observation Observation Oxygen Delivery Method Room Air Room Air Room Air Blood Pressure (90/60-120/80) 139/77 H 126/61 H 165/84 H Blood Pressure Mean (mm Hg) 97 82 111 Source Monitor Monitor Monitor Position Sitting Sitting Sitting Blood Pressure Location Left Arm Left Arm Left Arm History Since Last Visit- (Skip if this is Patient's initial visit) Have you changed medications since your No No last visit? Any new allergies or adverse reactions No No Had a fall/change in ADL's that may No No increase risk of falls Signs or symptoms of abuse and/or No No neglect since last visit Have you been in the hospital since your No No last visit? Has dressing in place as prescribed Yes Yes Has compression in place as prescribed Yes Yes Has offloadiing in place as prescribed N/A N/A Experienced any changes in pain level or No No management Left Footwear Regular Shoe Regular Shoe Regular Shoe Right Footwear Regular Shoe Regular Shoe Regular Shoe Pain Scale: 0-10 Numeric Is Patient Pain Free? Yes Yes Yes Lower Extremity Assessment/ Foot Assessment/ Toe Nail Assessment Right -Posterior Tibial Doppler Monophasic -Dorsalis Pedis Doppler Multiphasic -Extremity Color Hyperpigmented, Hemosiderin -Hair Growth on Legs No -Hair Growth on Toes No -Other Deformity No: TOENAILS PAINTED -Prior Foot Ulcer No -Charcot Joint No -Prior Amputation No -Improper Length & Hygeine No Left -Posterior Tibial Doppler Monophasic -Dorsalis Pedis Doppler Multiphasic -Extremity Color Hyperpigmented, Hemosiderin -Hair Growth on Legs No -Hair Growth on Toes No -Other Deformity No: TOENAILS PAINTED -Prior Foot Ulcer No -Charcot Joint No -Prior Amputation No -Improper Length & Hygeine No Communication Assessment Preferred language Malay Air Deodorizer Servicer Required No Able to Read Yes Able to Write Yes Communication Tools None Right Hearing Abillity Normal Left Hearing Abillity Normal Visual Assistive Devices Glasses Teaching Assessment Preferences Verbal,Written, Audio/Visual, Demonstration Barriers to Learning None Readiness To Learn Excellent Willingness to Engage in Self Management High Activies Readiness to Engage in Self Management High Activities Anxiety Level Calm Cooperation Cooperative Perception Coherent Interest in Health Problem Asks Questions Education Importance Acknowledges Need Does Patient Smoke tobacco or other No substances Smoking Status Never smoker Is Patient Diabetic No Functional Assessment Recent Decline in Ability to Perform Denies Any Declines Culture/Latter-Day/Photograph Mounter Cultural/Latter-Day Needs that may affect No Treatment Plan Teaching: Wound Center *Welcome to the Wound Center -Person Taught Patient -Teaching Method Discussion -Response to teaching Verbalize understanding Welcome to the Wound Care Center Malay WC - Nurse 1 - General Ulcer Measurement Start: 03/19/23 12:59 Freq: Status: Active Protocol: Activity Type Activity Date Activity User E-sign Co-sign Detail Recorded Client Recorded Date Recorded By Document 03/19/23 13:00 [employer] 03/19/23 13:10 [employer] Document 03/26/23 13:13 [employer] 03/26/23 13:20 [employer] Document 04/02/23 13:14 [employer] Desktop 04/02/23 13:23 [employer] 03/19/23 03/26/23 04/02/23 13:00 13:13 13:14 Wound Center Nurse 1 #1- L WADE -Combined with other wound No No No -Current Size (cm) - Length 1.5 1.4 1.4 -Current Size (cm) - Width 2.1 1.6 1 -Current Size (cm) - Depth 0.1 0.1 0.1 -Total Square Cm 3.15 2.24 1.4 -Date of Last Picture (Recall this 03/19/23 03/26/23 04/02/23 field) -Photo Taken Yes Yes Yes -Epithelialization None Present None Present -Tunneling No No No -Undermining/Tunneling No No No -Circular Undermining No No No -Exudate Amt Medium Medium Medium -Exudate Type Serosanguineous Serosanguineous Serosanguineous -Wound Margin Flat & Intact Distinct, Flat & Intact Outline Attached -Granulation Amt Small (1-33%) Small (1-33%) None Present (0 %) -Granulation Quality Red Red -Slough/Fibrin Yes Yes Yes -Necrosis Amt Large (67-100%) Large (67-100%) Large (67-100%) -Necrotic Tissue Type Adherent Slough Adherent Slough Adherent Slough -Texture (Linda-wound Skin Appearance) Assessed Assessed, Assessed, Scarring Scarring -Moisture (Linda-wound Skin Appearance) Assessed Assessed,Dry/ Assessed,Dry/ Scaly Scaly -Color (Linda-wound Skin Appearance) Assessed Assessed, Assessed Hemosiderin Staining -Temperature (Linda-wound Skin No Abnormality No Abnormality No Abnormality Appearance) (Pt Warm) (Pt Warm) (Pt Warm) -Tenderness on Palpation (Linda-wound No No No Skin Appearance) -Ulcer Cleansing Rinsed/ Soap and Water Soap and Water Irrigated with Saline -Foul Odor after Cleansing No No No -Anesthetic Used 5% Lidocaine 5% Lidocaine 5% Lidocaine Gel Gel Gel Lower Limb Edema Present Yes Yes Yes Right Calf (cm) 46.5 43.5 Right Ankle (cm) 30.5 25.6 Left Calf (cm) 49 46 46.2 Left Ankle (cm) 31 30 27.9 - Nurse 2 - General Ulcer CM Notes Start: 03/19/23 12:59 Freq: Status: Active Protocol: Activity Type Activity Date Activity User E-sign Co-sign Detail Recorded Client Recorded Date Recorded By Document 03/19/23 13:26 Laptop 03/19/23 13:29 Document 03/26/23 13:32 Laptop 03/26/23 13:39 Document 04/02/23 13:31 Laptop 04/02/23 13:35 03/19/23 03/26/23 04/02/23 13:26 13:32 13:31 Wound Center Nurse 2 #1- L WADE -Time 13:27 13:33 13:34 -Correct Patient Yes Yes Yes -Correct Side, Site, Position Yes Yes Yes -Correct Procedure Yes Yes Yes -Procedure Performed Yes Yes Yes -Type of Procedure Debridement Debridement Debridement -Clinical Debridement Subcutaneous Subcutaneous Subcutaneous -Tissue Removed Subcutaneous Subcutaneous Subcutaneous -Post Debridement (cm) - Length 2.0 1.4 0.5 -Post Debridement (cm) - Width 1.5 1.5 0.8 -Post Debridement (cm) - Depth 0.2 0.1 0.1 -Total Square (Post) (cm) 3.00 2.10 0.40 -Area of Debridement (cm) - Length 2.0 1.4 0.5 -Area of Debridement (cm) - Width 1.5 1.5 0.8 -Total Square (Area) (cm) 3.00 2.10 0.40 -Tunneling No No No -Undermining/Tunneling No No No -Circular Undermining No No No -Wound/Ulcer Outcome Not Healed Not Healed Not Healed -Ulcer Cleansing Rinsed/ Rinsed/ Rinsed/ Irrigated with Irrigated with Irrigated with Saline Saline Saline -Foul Odor after Cleansing No No No -Bioengineered Tissue No Yes Yes -Type of Bioengineered Tissue Epifix 18mm Epifix 18mm Disc Disc -Expiration Date 12/08/27 12/08/27 -Product Lot Number [id number] -Percent Used 100 100 -Lot number of Saline Used [id number] -Bleeding Controlled with Pressure Pressure Pressure -Treatment Response Procedure Procedure Procedure Tolerated Well Tolerated Well Tolerated Well -Offloading No No No -Debridement - Subq, 1st 20sq cm Yes No No -Apply Skin Sub - 1st 25 sq cm - Legs 1 1 -Epifix 18mm Disc 3 3 Pain Scale: 0-10 Numeric Is Patient Pain Free? Yes Yes Yes WC - Nurse 3 - General Ulcer D/C NN Start: 03/19/23 12:59 Freq: Status: Active Protocol: Activity Type Activity Date Activity User E-sign Co-sign Detail Recorded Client Recorded Date Recorded By Document 03/19/23 13:43 [facility] 03/19/23 13:43 [facility] Document 03/26/23 13:44 [facility] Desktop 03/26/23 13:45 [employer] Document 04/02/23 13:39 [facility] Desktop 04/02/23 13:40 [facility] 03/19/23 03/26/23 04/02/23 13:43 13:44 13:39 Wound Care Center Nurse 3 #1- L WADE -Ulcer Cleansing Soap and Water -Foul Odor after Cleansing No -Primary Dressing Applied NonAdherent Contact Layer -Other Dressing XEROFORM; PER epifix, abd, epifix; GM RN per gm rn -Other Covering ABD BLE -Lotion applied to leg before Yes Yes compression wrap -Multi-Layered Wrap Application Multi-Layer Multi-Layer Multi-Layer Comp - Bilat ($ Comp - Bilat ($ Comp - Bilat ($ ) ) ) -Other applied per gm rn Treatment Response Procedure Procedure Procedure Tolerated Well Tolerated Well Tolerated Well Pain Scale: 0-10 Numeric Is Patient Pain Free? Yes Yes Yes WC - Visit Discharge Discharge Condition Stable Stable Stable Ambulatory Status Ambulatory,Cane Ambulatory,Cane Ambulatory Transportation Private Auto Private Auto Private Auto Assessment/Plan Assessment/Plan (1) Ulcer of left lower extremity with fat layer exposed: CODE(S): L97.922 - Non-pressure chronic ulcer of unspecified part of left lower leg with fat layer exposed PLAN: Patient was examined and evaluated. All findings were discussed with patient. All questions were answered to the patient's satisfaction. Excisional debridement down to and including subcutaneous tissue with a number 5 mm dermal curette to left anterior leg full-thickness ulceration. Predebridement measurement is sanguinous crust. Postdebridement measurements are 0.5 x 0.8 x 0.1 cm. EpiFix 18 mm disc was applied to the left leg full-thickness ulceration with 100% use. Second application. The graft site was free and clear of any infection. The wound/skin graft substitute was dressed with nonadherent bandage secured in place with Steri-Strips followed by bolster dressing as well as a double layer Tubigrip. Patient will follow-up in 1 week. (2) Edema: CODE(S): R60.9 - Edema, unspecified QUALIFIERS: Edema type: generalized Qualified Code(s): R60.1 - Generalized edema PLAN: Patient will be placed in bilateral 3M dressings. She is to keep them clean dry and intact. She may remove them the day of her next wound care clinic appointment so that she may shower. Patient was educated not to disturb the graft prior to arrival. (3) Pain in left leg: CODE(S): M79.605 - Pain in left leg
== END 2023-04-08 23:59 | disposition home or self-care (01) ==
LOC: WC 13:15
PROVIDERS: PCP Internal Medicine; Referring Provider Internal Medicine; Visit Provider Podiatrist Foot & Ankle Surgery
DX: L97.922 Non-pressure chronic ulcer of unspecified part of left lower leg with fat layer exposed (principal); I42.8 Other cardiomyopathies; N18.32 Chronic kidney disease, stage 3b; E78.5 Hyperlipidemia, unspecified; I12.9 Hypertensive chronic kidney disease with stage 1 through stage 4 chronic kidney disease, or unspecified chronic kidney disease; R60.9 Edema, unspecified; M79.605 Pain in left leg; Z85.3 Personal history of malignant neoplasm of breast; Z86.711 Personal history of pulmonary embolism
CPT/HCPCS: 11042; 15271; 29581; 99214; Q4186; G0463

== ENCOUNTER 2023-04-23 13:00 | Outpatient (RCR) | payer MEDICARE, OTHER, SELFPAY ==
[2019-04-29 10:03] VITALS: BMI 41.8
[2023-04-09 00:30] VITALS: BP 165/84; PULSE 67; RESP 16; TEMP 36.6; BMI 34.6
[2023-04-09 12:53] VITALS: BP 159/83; PULSE 63; RESP 20; TEMP 35.9; BMI 34.6
--- NOTE | 2023-04-09 13:54 | PN.PCM_ITS ---
History of Present Illness Date of Service: 04/09/23 Chief Complaint: Left anterior leg wound History of Wound: Patient is a 83-year-old known to the wound care center at [facility] for treatment and evaluation of her chronic left anterior leg wound. Patient has been getting treatment by her primary care physician with regular debridements and antibiotic treatment. Patient did have a culture by her primary care that grew out Pseudomonas aeruginosa she was treating with topical antibiotics and again oral antibiotics, 2 rounds with failure to heal. She presents today to the wound care center for treatment. She denies any trauma. Denies constitutional symptoms. No other pedal complaints at this time. Subjective Subjective Mrs. Santos is a 83-year-old female presenting to [facility] wound care clinic today for follow-up and evaluation of full-thickness ulceration to the left wade. Patient has had her first application of EpiFix. She has left her bilateral 3M wrappings clean dry and intact. She denies any strikethrough. She does admit that the wraps rolled down a little bit. She is requesting if she can remove the wraps prior to her next visit so that she may shower. She denies trauma. Denies constitutional symptoms. No other pedal complaints at this time. Objective Data Objective Data Vital Signs: Vital Signs Temp Pulse Resp BP 96.7 F L 63 20 H 159/83 H 04/09/23 12:53 04/09/23 12:53 04/09/23 12:53 04/09/23 12:53 Weight: 100.244 kg Body Mass Index (BMI) 34.6 Physical Exam Narrative Vascular: DP and PT pulse are faintly palpable secondary to edema. CFT is brisk. Skin temperature great is warm to warm from proximal ankle to distal digit. Neurological: Light touch and epicritic station is intact. Dermatological: Full-thickness ulceration to the left anterior leg measuring 0.1 x 0.1 x 0.1 cm. Wound base is granular nature. No sign of infection. No evidence of drainage. No probe to bone. No erythema or proximal streaking. Musculoskeletal: Mild pain on palpation to the full-thickness ulceration to the left leg. No pain with calf compression. Debridement Note Debridement Note Post-Debridement Measurements and Additional Note: Post-Debridement Measurements/Treatment CRYSTAL - Nurse 1 - General Ulcer Assessment Start: 04/09/23 12:53 Freq: Status: Active Protocol: WCNATHALIE Activity Type Activity Date Activity User E-sign Co-sign Detail Recorded Client Recorded Date Recorded By Document 04/09/23 12:53 DL Desktop 04/09/23 12:58 04/09/23 12:53 - Today's Visit Information Type of service Follow-up Visit (Physician/FRETTED INSTRUMENT MAKER HAND ) Arrival Mode Ambulatory,Cane Transfer Assistance None Patient Identification Verified (Name & Yes ) Patient Requires Transmission-Based No Precautions Height and Weight Body Mass Index (BMI) 34.6 BMI Classification Obese Vital Signs Temperature (97.8 F-99.1 F) 96.7 F L Temperature Source Temporal Pulse Rate (60-100) 63 Pulse Location Monitor Respiratory Rate (12-18) 20 H Respiratory rate source Observation Blood Pressure (90/60-120/80) 159/83 H Blood Pressure Mean (mm Hg) 108 Source Monitor History Since Last Visit- (Skip if this is Patient's initial visit) Have you changed medications since your No last visit? Any new allergies or adverse reactions No Had a fall/change in ADL's that may No increase risk of falls Signs or symptoms of abuse and/or No neglect since last visit Have you been in the hospital since your No last visit? Has dressing in place as prescribed No Has compression in place as prescribed No Has offloadiing in place as prescribed N/A Experienced any changes in pain level or No management Left Footwear Regular Shoe Right Footwear Regular Shoe Pain Scale: 0-10 Numeric Is Patient Pain Free? Yes - Nurse 1 - General Ulcer Measurement Start: 04/09/23 12:53 Freq: Status: Active Protocol: Activity Type Activity Date Activity User E-sign Co-sign Detail Recorded Client Recorded Date Recorded By Document 04/09/23 12:53 DL [employer] 04/09/23 12:58 DL 04/09/23 12:53 Wound Center Nurse 1 #1- L WADE -Current Size (cm) - Length 0.8 -Current Size (cm) - Width 0.8 -Current Size (cm) - Depth 0.1 -Total Square Cm 0.64 -Exudate Amt None Present -Wound Margin Thickened -Granulation Amt None Present (0 %) -Necrosis Amt Small (1-33%) -Necrotic Tissue Type Eschar -Structure Exposed N/A -Texture (Linda-wound Skin Appearance) Scarring -Moisture (Linda-wound Skin Appearance) Dry/Scaly -Color (Linda-wound Skin Appearance) Hemosiderin Staining -Temperature (Linda-wound Skin No Abnormality Appearance) (Pt Warm) -Tenderness on Palpation (Linda-wound No Skin Appearance) -Ulcer Cleansing Soap and Water -Foul Odor after Cleansing No -Anesthetic Used 5% Lidocaine Gel Right Calf (cm) 46.5 Right Ankle (cm) 25.6 Left Calf (cm) 47.5 Left Ankle (cm) 29.5 - Nurse 2 - General Ulcer CM Notes Start: 04/09/23 12:53 Freq: Status: Active Protocol: Activity Type Activity Date Activity User E-sign Co-sign Detail Recorded Client Recorded Date Recorded By Document 04/09/23 13:15 Laptop 04/09/23 13:21 04/09/23 13:15 Wound Center Nurse 2 #1- L WADE -Correct Patient No -Correct Side, Site, Position No -Correct Procedure No -Procedure Performed No -Post Debridement (cm) - Length 0.1 -Post Debridement (cm) - Width 0.1 -Post Debridement (cm) - Depth 0.1 -Total Square (Post) (cm) 0.01 -Area of Debridement (cm) - Length 0.1 -Area of Debridement (cm) - Width 0.1 -Total Square (Area) (cm) 0.01 -Wound/Ulcer Outcome Not Healed Pain Scale: 0-10 Numeric Is Patient Pain Free? Yes - Nurse 3 - General Ulcer D/C NN Start: 04/09/23 12:53 Freq: Status: Active Protocol: Activity Type Activity Date Activity User E-sign Co-sign Detail Recorded Client Recorded Date Recorded By Document 04/09/23 13:27 [facility] [id number] 04/09/23 13:28 [facility] 04/09/23 13:27 Wound Care Center Nurse 3 #1- L WADE -Other Dressing healed area padded w/ abd per kw tube room supervisor ble -Multi-Layered Wrap Application Multi-Layer Comp - Bilat ($ ) Treatment Response Procedure Tolerated Well Pain Scale: 0-10 Numeric Is Patient Pain Free? Yes - Visit Discharge Discharge Condition Stable Ambulatory Status Ambulatory,Cane Transportation Private Auto Assessment/Plan Assessment/Plan (1) Ulcer of left lower extremity with fat layer exposed: CODE(S): L97.922 - Non-pressure chronic ulcer of unspecified part of left lower leg with fat layer exposed PLAN: Patient was examined evaluated. All fines were discussed with the patient. All questions were answered to the patient satisfaction. The patient's wound is coming along quite well. It measures 0.1 x 0.1 x 0.1 cm to the left leg. We will begin authorization for CircAid's compression wraps the left. The patient will have to pay [id number] for the right lower extremity. She is okay with that. She will follow-up in 1 week for nursing visit to remove her 3M wrap to left lower extremity. Then follow-up 1 week after that with Dr. Ibanez for further evaluation. She left the office pleased to visit. (2) Edema: CODE(S): R60.9 - Edema, unspecified QUALIFIERS: Edema type: generalized Qualified Code(s): R60.1 - Generalized edema
[2023-04-15 12:56] VITALS: BMI 34.6
[2023-04-23 12:52] VITALS: BP 126/67; PULSE 74; RESP 16; TEMP 36.1; BMI 34.6
--- NOTE | 2023-04-23 14:20 | PN.PCM_ITS ---
History of Present Illness Date of Service: 04/23/23 Chief Complaint: Left anterior leg wound History of Wound: Patient is a 83-year-old known to the wound care center at [facility] for treatment and evaluation of her chronic left anterior leg wound. Patient has been getting treatment by her primary care physician with regular debridements and antibiotic treatment. Patient did have a culture by her primary care that grew out Pseudomonas aeruginosa she was treating with topical antibiotics and again oral antibiotics, 2 rounds with failure to heal. She presents today to the wound care center for treatment. She denies any trauma. Denies constitutional symptoms. No other pedal complaints at this time. Subjective Subjective Mrs. Santos is a 83-year-old female presenting to [facility] wound care clinic today for follow-up and evaluation of full-thickness ulceration to the left wade. Patient has had her first application of EpiFix. She has left her bilateral 3M wrappings clean dry and intact. She denies any strikethrough. She does admit that the wraps rolled down a little bit. She is requesting if she can remove the wraps prior to her next visit so that she may shower. She denies trauma. Denies constitutional symptoms. No other pedal complaints at this time. Objective Data Objective Data Vital Signs: Vital Signs Temp Pulse Resp BP 96.9 F L 74 16 126/67 H 04/23/23 12:52 04/23/23 12:52 04/23/23 12:52 04/23/23 12:52 Weight: 100.244 kg Body Mass Index (BMI) 34.6 Physical Exam Narrative Vascular: DP and PT pulse are faintly palpable secondary to edema. CFT is brisk. Skin temperature great is warm to warm from proximal ankle to distal digit. Neurological: Light touch and epicritic station is intact. Dermatological: Full-thickness ulceration to the left anterior is now healed. No sign of infection. No evidence of drainage. No probe to bone. No erythema or proximal streaking. Musculoskeletal: Mild pain on palpation to the full-thickness ulceration to the left leg. No pain with calf compression. Debridement Note Debridement Note Post-Debridement Measurements and Additional Note: Post-Debridement Measurements/Treatment CRYSTAL - Nurse 1 - General Ulcer Assessment Start: 04/09/23 12:53 Freq: Status: Active Protocol: [place] Activity Type Activity Date Activity User E-sign Co-sign Detail Recorded Client Recorded Date Recorded By Document 04/09/23 12:53 DL Desktop 04/09/23 12:58 DL Document 04/15/23 12:56 GM Desktop 04/15/23 13:08 GM Document 04/23/23 12:52 NRL Desktop 04/23/23 12:57 NRL 04/09/23 04/15/23 04/23/23 12:53 12:56 12:52 WC - Today's Visit Information Type of service Follow-up Visit Nurse-only Follow-up Visit (Physician/PEOPLESOFT HCM DEVELOPER Visit (Physician/PEOPLESOFT HCM DEVELOPER ) ) Arrival Mode Ambulatory,Cane Ambulatory,Cane Ambulatory, Walker Transfer Assistance None None Patient Identification Verified (Name & Yes Yes Yes ) Patient Requires Transmission-Based No No No Precautions Safety Precautions Fall Prevention Height and Weight Body Mass Index (BMI) 34.6 34.6 34.6 BMI Classification Obese Obese Obese Vital Signs Temperature (97.8 F-99.1 F) 96.7 F L 96.9 F L Temperature Source Temporal Temporal Pulse Rate (60-100) 63 74 Pulse Location Monitor Monitor Respiratory Rate (12-18) 20 H 16 Respiratory rate source Observation Observation Blood Pressure (90/60-120/80) 159/83 H 126/67 H Blood Pressure Mean (mm Hg) 108 86 Source Monitor Monitor Position Semi-Fowlers Blood Pressure Location Left Arm History Since Last Visit- (Skip if this is Patient's initial visit) Have you changed medications since your No No No last visit? Any new allergies or adverse reactions No No No Had a fall/change in ADL's that may No No No increase risk of falls Signs or symptoms of abuse and/or No No neglect since last visit Have you been in the hospital since your No No No last visit? Has dressing in place as prescribed No Yes Yes Has compression in place as prescribed No Yes Yes Has offloadiing in place as prescribed N/A No Experienced any changes in pain level or No No No management Left Footwear Regular Shoe Regular Shoe Regular Shoe Right Footwear Regular Shoe Regular Shoe Regular Shoe Pain Scale: 0-10 Numeric Is Patient Pain Free? Yes Yes Yes WC - Nurse 1 - General Ulcer Measurement Start: 04/09/23 12:53 Freq: Status: Active Protocol: Activity Type Activity Date Activity User E-sign Co-sign Detail Recorded Client Recorded Date Recorded By Document 04/09/23 12:53 DL Desktop 04/09/23 12:58 DL Document 04/23/23 12:52 NRL Desktop 04/23/23 12:57 NR 04/09/23 04/23/23 12:53 12:52 Wound Center Nurse 1 #1- L WADE -Current Size (cm) - Length 0.8 -Current Size (cm) - Width 0.8 -Current Size (cm) - Depth 0.1 -Total Square Cm 0.64 -Exudate Amt None Present -Wound Margin Thickened -Granulation Amt None Present (0 %) -Necrosis Amt Small (1-33%) -Necrotic Tissue Type Eschar -Structure Exposed N/A -Texture (Linda-wound Skin Appearance) Scarring -Moisture (Linda-wound Skin Appearance) Dry/Scaly -Color (Linda-wound Skin Appearance) Hemosiderin Staining -Temperature (Linda-wound Skin No Abnormality Appearance) (Pt Warm) -Tenderness on Palpation (Linda-wound No Skin Appearance) -Ulcer Cleansing Soap and Water -Foul Odor after Cleansing No -Anesthetic Used 5% Lidocaine Gel Lower Limb Edema Present Yes Right Calf (cm) 46.5 50.2 Right Ankle (cm) 25.6 27.7 Left Calf (cm) 47.5 50.5 Left Ankle (cm) 29.5 28 - Nurse 2 - General Ulcer CM Notes Start: 04/09/23 12:53 Freq: Status: Active Protocol: Activity Type Activity Date Activity User E-sign Co-sign Detail Recorded Client Recorded Date Recorded By Document 04/09/23 13:15 Laptop 04/09/23 13:21 04/09/23 13:15 Wound Center Nurse 2 #1- L WADE -Correct Patient No -Correct Side, Site, Position No -Correct Procedure No -Procedure Performed No -Post Debridement (cm) - Length 0.1 -Post Debridement (cm) - Width 0.1 -Post Debridement (cm) - Depth 0.1 -Total Square (Post) (cm) 0.01 -Area of Debridement (cm) - Length 0.1 -Area of Debridement (cm) - Width 0.1 -Total Square (Area) (cm) 0.01 -Wound/Ulcer Outcome Not Healed Pain Scale: 0-10 Numeric Is Patient Pain Free? Yes - Nurse 3 - General Ulcer D/C NN Start: 04/09/23 12:53 Freq: Status: Active Protocol: Activity Type Activity Date Activity User E-sign Co-sign Detail Recorded Client Recorded Date Recorded By Document 04/09/23 13:27 [facility] [id number] 04/09/23 13:28 [facility] Document 04/15/23 12:56 GM Desktop 04/15/23 13:08 GM Document 04/23/23 13:32 KW Desktop 04/23/23 13:33 KW 04/09/23 04/15/23 04/23/23 13:27 12:56 13:32 Wound Care Center Nurse 3 #1- L WADE -Other Dressing healed area padded w/ abd per kw manufacturing supervisor 2nd shift -Primary Dressing Covered/Secured with Dry Gauze Right -Lotion applied to leg before Yes compression wrap -Multi-Layered Wrap Application Multi-Layer Multi-Layer Comp - Right ($ Comp - Right ($ ) ) -Stockings No ble -Multi-Layered Wrap Application Multi-Layer Comp - Bilat ($ ) Treatment Response Procedure Tolerated Well Pain Scale: 0-10 Numeric Is Patient Pain Free? Yes Yes Yes WC - Visit Discharge Discharge Condition Stable Stable Stable Ambulatory Status Ambulatory,Cane Ambulatory,Cane Walker Transportation Private Auto Private Auto Private Auto Medication Reconcilliation completed & Yes No provided to patient/care provider Clinical Summary of Care Provided Yes Yes Assessment/Plan Assessment/Plan (1) Ulcer of left lower extremity with fat layer exposed: CODE(S): L97.922 - Non-pressure chronic ulcer of unspecified part of left lower leg with fat layer exposed PLAN: Patient was examined and evaluated. All findings were discussed with the patient. All questions were answered to the patient's satisfaction. The patient's left anterior leg wound is now healed. Patient will place a CircAid to the left leg. Patient states she did not get her CircAid for the right lower extremity will reach out to [place] for follow-up. She will be placed in a 3M wrap. When she obtains her CircAid she may remove the wrap and apply the CircAid. The patient shows evidence of xerosis and will be sent in a prescription for Lac-Hydrin. Patient is grateful for her care and will follow- up to the wound care center or with Dr. Ibanez as needed. (2) Pain in left leg: CODE(S): M79.605 - Pain in left leg (3) Edema: CODE(S): R60.9 - Edema, unspecified QUALIFIERS: Edema type: generalized Qualified Code(s): R60.1 - Generalized edema (4) Xerosis cutis: CODE(S): L85.3 - Xerosis cutis PLAN: A prescription for Lac-Hydrin will be sent to the patient's pharmacy. This will be applied 2 times per day with 3 refills.
== END 2023-04-23 16:19 | disposition home or self-care (01) ==
LOC: WC 13:00
PROVIDERS: PCP Internal Medicine; Referring Provider Internal Medicine; Visit Provider Podiatrist Foot & Ankle Surgery
DX: L97.922 Non-pressure chronic ulcer of unspecified part of left lower leg with fat layer exposed (principal); R60.9 Edema, unspecified
CPT/HCPCS: 29581

== ENCOUNTER 2023-05-05 14:00 | Outpatient (RCR) | payer MEDICARE, OTHER, SELFPAY ==
[2019-04-29 10:03] VITALS: BMI 41.8
--- NOTE | 2023-04-03 13:13 | HP.PTEVAL ---
Patient's Visit Information Visit Information Visit Information: NITA PONCE is a 83 year old F referred to Physical Therapy by Dr. Jose Mckeon MD with a diagnosis of BACK PAIN. Date of Evaluation: 04/03/23 Physical Therapist: Kavita Ulloa PT, Cert MDT Visit Plan Frequency: 2x /Week Duration: 4-6 Weeks Plan: FOCUS ON CORE AND LE STRENGTHENING IN SITTING FOR HOME EXERCISE PROGRAM. WORK ON POSTURE WITH GAIT SHORT DISTANCES AND IN STANDING FOR SHORT PERIODS OF TIME. Subjective Subjective: Work/Leisure: RETIRED Present symptoms: LOW BACK PAIN. CORE WEAKNESS. Present since: CHRONIC Pain Scale: WORST 7/10, LEAST 0/10 Currently: 0/10 Is it getting better, worse or staying the same: STAYING THE SAME Commenced as a result of: NO APPARENT REASON OTHER THAN ARTHRITIS Worse: WALKING AND STANDING. Better: SITTING AND LYING. Disturbed sleep: NO Previous history/Previous treatment: A LOT OF CHEPE'S. H/O LUMBAR FUSION WITH RODS MORE THAN 10 YEARS AGO AT THE [facility]. PHYSICAL THERAPY BUT NONE RECENT. Treatment this episode: MOST RECENT CHEPE WAS A WEEK AGO WITH A LITTLE BIT OF BENEFIT. ALSO ON NORCO. Coughing/sneezing/straining: NEGATIVE FOR INCREASED BACK PAIN. Gait: GETTING AROUND WITH TWO CANES WHEN OUTSIDE HOME AND ROLLATOR IN HOME. HAS ELECTRIC W/C TO GET AROUND YARD. NO RECENT FALLS. Bowel or Bladder Dysfunction: NO Accidents: NO Unexplained weight loss: NO Imaging: NONE RECENT. 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 SEE [facility] EMR MED HISTORY - REVIEWED WITH PATIENT. OTHER: CURRENTLY GOING TO WOUND CLINIC - E WOUND - IMPROVING. Objective Objective: Sitting/Standing Posture: POOR. VERY FLEXED POSTURE IN STANDING AND SITTING. ONLY ABLE TO PARTIALLY CORRECT POSTURE Other Observations: THIS PATIENT AMBULATES INDEP'LY INTO PT WITH JOSE CANES X APPROX 25 FEET. SHE WAS BROUGHT BACK TO PT ROOM IN W/C FOR ENERGY CONSERVATION TODAY. PATIENT LIVES ALONE AND DROVE HERSELF TO PT. SHE LIMITS HER WALKING AND STANDING DUE TO JOSE FOOT AND ANKLE cartilage DEGENERATION THAT THERE ISN'T FURTHER TREATMENT FOR. SHE IS JOSE UE DEPENDENT TO TRANSFER FROM SIT TO STAND AND REVERSE. Sensory deficit: JOSE LE LIGHT TOUCH SENSATION APPEARS TO BE GROSSLY INTACT BUT TESTING IMPAIRED BY COMPRESSION GARMETS, L LEG WOUND BANDAGES AND LYMPHEDEMA. ROM deficit: TIGHT JOSE HIP FLEXORS. TIGHT JOSE ANKLE DORSI AND PLANTAR FLEXION WHICH PATIENT REPORTS AT LEAST PARTIALLY LIMITED BY COMPRESSION GARMETS/BANDAGES. Motor deficit: JOSE HIPS, KNEES AND ANKLES GROSSLY 4/5. Lumbar mvmt loss: flex - NIL ext - AMADOR R SG - AMADOR L SG - AMADOR Core strength: POOR OTHER: SEE TUG AND STS TEST RESULTS BELOW. TREATMENT: HEP INSTRUCTION FOR SEATED JOSE HEEL/TOE RAISES, LAE'S AND HIP FLEXION (MARCHING) 2X10 EA, 2 TIMES A DAY. Balance/Special Test Scores Oswestry Low Back Score: 21 TUG Test Time Seconds: 34.98 30 Second Chair Rise Test Seconds: 5 Goals Goal 1:: PATIENT WILL COMPLETE 7 STANDS IN 30 SECS WITH ONE UE ASSIST TO DEMONSTRATE IMPROVED FUNCTIONAL STRENGTH Goal Time Frame: 4-6 Weeks Goal 2:: PATIENT WILL COMPLETE TUG IN < 25 SECS WITH JOSE CANES TO DEMONSTRATE IMPROVED GAIT STABILITY Goal Time Frame: 4-6 Weeks Goal 3:: PATIENT WILL DEMONSTRATED ABILITY TO SIT, STAND AND WALK MORE ERECT THROUGHOUT THERAPY SESSION TO HELP MEET PATIENT GOAL Goal Time Frame: 4-6 Weeks Goal 4:: PATIENT WILL BE INDEP WITH A HEP FOR CONTINUED IMPROVEMENT ONCE FORMAL PHYSICAL THERAPY CONCLUDES. Goal Time Frame: 4-6 Weeks Rehabilitation Potential Physical Therapy Diagnosis: BACK AND LE WEAKNESS AND STIFFNESS. BACK PAIN. Rehabilitation Potential: Fair Anticipated Interventions Patient/Client Instruction: Educate patient on: Condition, Plan of Care and Risk Factors For the Purpose of:: To improve self management Therapeutic Exercise to Include: Strength training, Postural training and Dynamic Lumbar Stabilization For the Purpose of:: To decrease pain, To improve muscle performance and motor function, To increase tolerance to activity/condition/position, To improve ability of physical actions for home/community/work/leisure and To improve gait and locomotor functions Text: Thank you for the opportunity to evaluate your patient. For Medicare and Medicare HMO plans, please review the plan of care and approve it. It will need to be FAXED BACK to us at [phone] for Medicare purposes. For Medicare only, by signing this I certify the plan of care. Please let me know if there are questions or concerns regarding this plan of care. Physician Signature: Date:
--- NOTE | 2023-05-05 14:48 | HP.PTDCSUM_ITS ---
Discharge Summary D/C summary: It has been my pleasure to treat NITA PONCE referred by Dr. Jose Eubanks MD, with the diagnosis of BACK PAIN for a total of 10 visit(s). Discharge Date: 05/05/23 Please see the following information for a summary of their discharge status. Subjective Subjective: PATIENT REPORTS SHE IS NO BETTER AND NO WORSE SINCE STARTING PT. SHE REPORTS HAVING FOLLOW UP WITH DR. EUBANKS TODAY AND HE RENEWED HER PAIN MEDICATION AND RECOMMENDED MORE INJECTIONS. SHE STATES THE INJECTIONS AREN'T HELPING SO SHE IS GOING TO STICK WITH THE PAIN MEDICATION BECAUSE SHE THINKS IT WOULD BE EVEN WORSE WITHOUT THE FARIA MEDS. SHE STATES SHE IS GLAD SHE TRIED THE THERAPY BUT IT JUST HASN'T HELPED. Overall Improvement % Improvement: 0 Objective Objective/Function: PATIENT WAS SEEN TODAY FOR RE-ASSESSMENT OF PROGRESS TOWARD THE SET PT GOALS AND THE NEED FOR FURTHER PHYSICAL THERAPY VS READINESS FOR DISCHARGE. PATIENT IS NOT MAKING SIGNIFICANT PROGRESS WITH PT. SHE IS HOWEVER INDEP WITH A HEP THAT SHE IS TOLERATING WITHOUT C/O INCREASED PAIN AND MAY BENEFIT FROM OVER TIME. PATIENT IS AGREEABLE. SHE REQUESTS TO BE BROUGHT BACK TO THE PT AREA FROM THE [facility] IN A W/C AGAIN TODAY AND HAS EACH VISIT. UPON EXAM TODAY: Sitting/Standing Posture: POOR. VERY FLEXED POSTURE IN STANDING AND SITTING. ONLY ABLE TO PARTIALLY CORRECT POSTURE PATIENT LIVES ALONE AND DROVE HERSELF TO PT. SHE LIMITS HER WALKING AND STANDING DUE TO JOSE FOOT AND ANKLE cartilage DEGENERATION THAT THERE ISN'T FURTHER TREATMENT FOR. SHE IS JOSE UE DEPENDENT TO TRANSFER FROM SIT TO STAND AND REVERSE. Motor deficit: JOSE HIPS, KNEES AND ANKLES GROSSLY 4/5. Lumbar mvmt loss: flex - NIL ext - AMADOR R SG - AMADOR L SG - AMADOR Core strength: POOR OTHER: SEE TUG AND STS TEST RESULTS BELOW. Goals Goal 1:: PATIENT WILL COMPLETE 7 STANDS IN 30 SECS WITH ONE UE ASSIST TO DEMONSTRATE IMPROVED FUNCTIONAL STRENGTH Goal Progress: Progressing Goal 2:: PATIENT WILL COMPLETE TUG IN < 25 SECS WITH JOSE CANES TO DEMONSTRATE IMPROVED GAIT STABILITY Goal Progress: Progressing Goal 3:: PATIENT WILL DEMONSTRATED ABILITY TO SIT, STAND AND WALK MORE ERECT THROUGHOUT THERAPY SESSION TO HELP MEET PATIENT GOAL Goal Progress: Not Progressing Goal 4:: PATIENT WILL BE INDEP WITH A HEP FOR CONTINUED IMPROVEMENT ONCE FORMAL PHYSICAL THERAPY CONCLUDES. Goal Progress: Progressing Plan Plan: D/C TO HEP. D/C Information d/c sentence: If there are questions or concerns regarding this patient's physical therapy, please feel free to call me at [phone]. Thank you for the referral of this patient. Sincerely, Kavita Ulloa, PT, Cert MDT Balance/Gait/Functional tests Balance/Special Test Scores Oswestry Low Back Score: 17 TUG Test Time Seconds: 33.69 Tug Test: >30sec.=impaired mobility 30 Second Chair Rise Test Seconds: 6 Improvement % Improvement: 0
== END 2023-05-05 19:00 | disposition home or self-care (01) ==
LOC: PT 14:00
PROVIDERS: PCP Internal Medicine; Referring Provider Anesthesiology Pain Medicine; Visit Provider Anesthesiology Pain Medicine
DX: M54.9 Dorsalgia, unspecified (principal)
CPT/HCPCS: 97110; 97162; 97164; 97530

== ENCOUNTER 2023-07-16 11:16 | Outpatient (RCR) | payer MEDICARE, SELFPAY ==
[2019-04-29 10:03] VITALS: BMI 41.8
== END 2023-08-07 23:59 | disposition home or self-care (01) ==
LOC: WC 11:16
PROVIDERS: PCP Internal Medicine; Referring Provider Podiatrist Foot & Ankle Surgery; Visit Provider Podiatrist Foot & Ankle Surgery
DX: Z09 Encounter for follow-up examination after completed treatment for conditions other than malignant neoplasm (principal)

== ENCOUNTER 2023-09-16 14:19 | Outpatient (RCR) | payer MEDICARE, SELFPAY ==
[2019-04-29 10:03] VITALS: BMI 41.8
--- NOTE | 2023-09-16 15:29 | WC ---
Pt to room and complains circaid falling down after applying during the day. Pt states she has to readjust circaid 6 to [address] Ibanez referred pt back to wound center for guidanceof above situation. Emm[facility] Bay [facility] aware of above situation.Nurse Shirley Marx RN watched pt reapply circaid and it was appropriately applied with measurement card. Emmy suggested pt to call [facility] where circaids were purchased. Phone for Margaux given to Pt. Also she suggested Pt could make an appointment with Dr Ibanez at wound center to address her circaids.
== END 2023-10-07 23:59 | disposition home or self-care (01) ==
LOC: WC 14:19
PROVIDERS: PCP Internal Medicine; Referring Provider Podiatrist Foot & Ankle Surgery; Visit Provider Podiatrist Foot & Ankle Surgery
DX: Z09 Encounter for follow-up examination after completed treatment for conditions other than malignant neoplasm (principal)

== ENCOUNTER → 2025-01-04 | Outpatient (CLI) | payer MEDICARE, SELFPAY ==
[2019-04-29 10:03] VITALS: BMI 41.8
[2025-01-04 15:14] LABS: Barbiturate Urine NEGATIVE (< 200 ng/mL); Benzodiazepine Urine NEGATIVE (< 200 ng/mL); PCP Urine NEGATIVE (< 25 ng/mL); THC Urine NEGATIVE (< 50 ng/mL)
== END | disposition home or self-care (01) ==
LOC: LAB 12:13
PROVIDERS: PCP Internal Medicine; Referring Provider Anesthesiology Pain Medicine; Visit Provider Anesthesiology Pain Medicine
DX: F11.20 Opioid dependence, uncomplicated (principal)
CPT/HCPCS: 80307